=== PATIENT | male | born 2000 | race Native Hawaiian/Other Pacific Islander ===

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

== ENCOUNTER 2022-02-17 21:21 | Emergency (ER) | payer OTHER ==
[~2022-02-17] VITALS: Ht 176.5 cm; Wt 57.6 kg
[2022-02-17 23:05] VITALS: BP 115/63; TEMP 98.2
== END 2022-02-17 23:05 | disposition home or self-care (01) ==
LOC: ED 21:21
DX: J02.0 Streptococcal pharyngitis (principal); F17.210 Nicotine dependence, cigarettes, uncomplicated; Z20.822 Contact with and (suspected) exposure to COVID-19
CPT/HCPCS: 36415; 87502; 87635; 99283; U0003

== ENCOUNTER 2022-12-09 13:29 | Emergency (ER) | payer OTHER ==
[~2022-12-09] VITALS: Ht 180.3 cm; Wt 61.2 kg
[2022-12-09 13:33] VITALS: BP 129/61; TEMP 97.5
== END 2022-12-09 15:28 | disposition home or self-care (01) ==
LOC: ED 13:29
DX: S89.91XA Unspecified injury of right lower leg, initial encounter (principal); S99.921A Unspecified injury of right foot, initial encounter; W19.XXXA Unspecified fall, initial encounter
CPT/HCPCS: 96372; 99283; J1100; J1885